=== PATIENT | female | born 1970 | race Caucasian/White ===

== ENCOUNTER 2018-09-06 17:33 | Emergency (ER) | payer MEDICAID ==
[~2018-09-06] VITALS: Ht 165.1 cm; Wt 89.0 kg
[2018-09-06 17:40] VITALS: Ht 165.1 cm; Wt 89.0 kg
[2018-09-06] MEDS ORDERED: LIDOCAINE 1% (MDV) 10 ML INJ INJ STA (20:40)
[2018-09-06] MEDS ORDERED: DIPHTH/TET/ACEL PERTUSS (ADULT) 0.5 ML VIAL IM* ONE (21:00)
--- NOTE | 2018-09-06 21:20 | ERD ---
ER Documentation Chief Complaint Chief Complaint L hand laceration with aluminum can today; unknown last tetanus shot HPI This is a 48-year-old female presents ED with left hand laceration that was sustained while she was opening up a aluminum can of beans earlier today. Patient admits to some mild pain along laceration. Denies tingling, numbness, lack sensation, decreased range of motion or painful range of motion. No known drug allergies. Tetanus up-to-date ROS All systems reviewed and are negative except as per history of present illness. Allergies Allergies: Coded Allergies: No Known Allergy (Unverified , 09/06/18) PMhx/Soc Medical and Surgical Hx: pt denies Medical Hx, pt denies Surgical Hx Hx Alcohol Use: No Hx Substance Use: No Hx Tobacco Use: No Smoking Status: Never smoker FmHx Family History: No diabetes Physical Exam Vitals Vital Signs Date Temp Pulse Resp B/P (MAP) Pulse Ox O2 O2 Flow FiO2 Time Delivery Rate 09/06/18 98.1 91 19 180/94 98 17:40 (122) Physical Exam Const: No acute distress Head: Atraumatic Eyes: Normal Conjunctiva ENT: Normal External Ears, Nose and Mouth. Neck: Full range of motion. No meningismus. Resp: Clear to auscultation bilaterally Cardio: Regular rate and rhythm, no murmurs Upper Extremity -left Skin: 2-1/2 cm lacerations to left anterior hand near fifth digit Compartments: Soft Motor: Full active range of motion shoulder/elbow/wrist/hand Sensation: Intact shoulder/pinky/middle finger/thumb web space Bones: Nontender humerus/elbow/forearm/wrist/hand Snuffbox: Nontender Joints: No effusion Pulses/Perfusion: 2+ radial, Capillary refill < 2 seconds Radial ulnar median nerve tested for sensory and motor deficit with no dysfunction Psych: Normal Mood and Affect Results 24 hrs Current Medications Medications Dose Sig/Bogdan Start Time Status Last (Trade) Ordered Route PRN Stop Time Admin Dose Reason Admin Diphtheria/ 0.5 ml ONCE ONCE 09/06/18 DC 09/06/18 Tetanus/Acell IM* 21:00 20:50 Pertussis 09/06/18 21:01 (Adacel) Lidocaine 10 ml ONCE STAT 09/06/18 DC HCl INJ 20:40 (Lidocaine 09/06/18 20:42 1% (Mdv) 10 ml) Procedures/MDM PROCEDURES: Laceration Repair by me: Anesthesia: 1% lidocaine locally Location: left anterior hand] Tendon/Joint/Nerves: No injury Foreign body: None detected after copious irrigation and exploration Technique: 6 Simple Interrupted Sutures Complexity: No subcutaneous sutures/mucosal repair/edge excision Post Closure Length: 2.5 cm Patient's bleeding was easily controlled in the department and there is no indication of anemia. No evidence of compartment syndrome, neurologic injury, vascular injury, open joint, tendon laceration, or foreign body. Patient is appropriate for outpatient follow up. 48 hour wound check. Scar minimization instructions given. ER COURSE: The patient was stable throughout ED course. I kept the patient and/or family informed of laboratory and diagnostic imaging results throughout the emergency room course. The patient was promptly evaluated and a treatment plan was devised based on H&P and other data. This plan was discussed with the patient who agreed and had no further questions or concerns prior to discharge. MEDICAL DECISION MAKIN-year-old female presents ED with laceration to left anterior hand. Laceration was repaired in ED and instructions for post care were discussed. No evidence of compartment syndrome, neurologic injury, vascular injury, open joint, tendon laceration, fracture, dislocation, or foreign body. Patient's vitals are stable and pt can be managed with close out patient follow up. Advised patient to return to ED or to be seen by primary care for a 48 hour wound check. Pt will also need to return to ED or be seen by primary care provider to have sutures removed in 10 days. Return to ED with any worsening symptoms and if patient starts experiencing fever, chills, purulent drainage, warmth, swelling at laceration site this may be indications that wound has become infected and patient may need antibiotics. DISPOSITION PLAN: We discussed follow up with the patient's primary care doctor within 24 to 48 hours. Patient counseled regarding my diagnostic impression and care plan. Prior to discharge all questions answered. Pt agrees with treatment plan and understands strict return precautions. Precautionary instructions provided including instructions to return to the ER if not improving or for any worsening or changing symptoms or concerns. SPECIALIST FOLLOW UP RECOMMENDED: None Patient has been advised to follow up with primary care in 1-2 days. Disclaimer: Inadvertent spelling and grammatical errors are likely due to EHR/dictation software use and do not reflect on the overall quality of patient care. Also, please note that the electronic time recorded on this note does not necessarily reflect the actual time of the patient encounter. Blood Pressure Assessment: Patient's blood pressure was elevated (>120/80) but appears stable without evidence of hypertension emergency or urgency. The patient was counseled about the risks of hypertension and urged to pursue outpatient monitoring and therapy within a week with their primary care physician. Departure Diagnosis: Primary Impression: Laceration of left hand Encounter type: initial encounter Foreign body presence: without foreign body Qualified Codes: S61.412A - Laceration without foreign body of left hand, initial encounter Condition: Stable Patient Instructions: Laceration, All [facility] Usted se keys hecho un examen mdico de control que le indica que no est en susanne condicin que requiera tratamiento urgente en el Departamento de Emergencia. Un estudio ms profundo y el tratamiento de melo condicin pueden esperar sin ningn riesgo hasta que usted sea atendida/o en el consultorio de melo mdico o susanne clnica. Es responsabilidad suya arreglar susanne lianet para el seguimiento del chuck. MANEJO DE CONDICIONES NO URGENTES EN EL FUTURO 1) Si usted tiene un mdico de atencin primaria: Usted debera llamar a melo mdico de atencin primaria antes de venir al departamento de emergencia. Despus de las horas de consultorio, melo doctor o melo asociado/a est disponible por telfono. El mdico o enfermero de rebecca en el servicio telefnico puede asesorarle por mable medio para atender el problema, o chuck contrario se puede programar susanne lianet. 2) Si usted no tiene un mdico de atencin primaria: Llame al mdico o clnica de referencia que aparece abajo dipti las horas de consultorio para hacer susanne lianet para que le vean. CLINICAS: [facility] [phone] [address] [facility] [phone] [place] [facility] [phone] [facility] [phone] [facility] [phone] [facility]. [phone] [address] Additional Instructions: Return in 2 days for wound check. Will need to have sutures removed in 10 days. Paciente aconseja volver a Departamento de urgencias inmediatamente para sntomas nuevos o que empeoran . Paciente aconseja posteriores con el PCP en 1-2 castillo . Paciente verbaliza la comprehensin y est de acuerdo con el tratamiento y el curso de accin. Si el paciente no tiene ninguna de atencin primaria pueden seguir con [facility] [address] [place] [address] o LAC + [address] [address] HANNA ROTH PA-C Sep 06, 2018 21:20
[2018-09-06 21:28] VITALS: BP 154/79; PULSE 82; RESP 18
== END 2018-09-06 21:37 | disposition home or self-care (01) ==
LOC: FTE 17:33
DX: S61.412A Laceration without foreign body of left hand, initial encounter (principal); W26.8XXA Contact with other sharp object(s), not elsewhere classified, initial encounter; Y92.9 Unspecified place or not applicable; Z23 Encounter for immunization
CPT/HCPCS: 12001; 90471; 90715; Z7502; Z7610